=== PATIENT | female | born 1940 | race Caucasian/White ===

== ENCOUNTER 2016-08-26 01:30 | Emergency (ER) | payer MEDICARE, OTHER ==
[~2016-08-26 01:30] MED LIST: ASPIR 8181 MG PO; CARBAMAZEPINE200 MG PO; CORDARONE 200M200 MG PO; DULCOLAX10 MG PR; ELIQUIS5 MG PO; IMDUR ER TAB 3030 MG PO; K-DUR TAB 10 M10 MEQ PO; LANOXIN TAB 00.25 MG PO; LASIX40 MG PO; LEVETIRACETAM1000 MG PO; LIPITOR TAB 2020 MG PO; LISINOPRIL2.5 MG PO; LOPRESSOR 50 MG50 MG PO; MILK OF MAGNESI30 ML PO; PLAVIX 75 MG TA75 MG PO; PROMOD 946 ML BT1 EA PO; PROVENTIL HFA 61 INH INH; TEGRETOL 200 M200 MG PO; THERAGRAN M TAB1 EA PO; TYLENOL 500 MG500 MG PO; VITAMIN C 250250 MG PO
[2016-08-26 02:11] LABS: HEMOGLOBIN 11.4 gm/dl (12.3-15.3); RED BLOOD COUNT 4.11 M/UL (4.00-5.10); WHITE BLOOD COUNT 8.9 K/UL (4.5-11.0)
[2016-08-26 02:59] LABS: BUN/CREATININE RATIO 18 (0-10)
== END 2016-08-26 05:05 | disposition home or self-care (01) ==
LOC: ER1 01:30
PROVIDERS: Emergency Medicine
DX: N39.0 Urinary tract infection, site not specified (principal); F03.90 Unspecified dementia, unspecified severity, without behavioral disturbance, psychotic disturbance, mood disturbance, and anxiety
CPT/HCPCS: 36415; 80053; 80307; 81001; 82140; 85025; 87086; 96372; 99285; J0696

== ENCOUNTER 2020-10-10 12:02 | Emergency (ER) | payer MEDICARE, OTHER ==
[~2020-10-10 12:02] MED LIST changes: +BACITRACIN28.4 GM TP
[2020-10-10 12:41] LABS: RED BLOOD COUNT 4.49 M/UL (4.00-5.10); WHITE BLOOD COUNT 9.6 K/UL (4.5-11.0)
[2020-10-10 12:47] LABS: BUN/CREATININE RATIO 17 (0-10)
[2020-10-10] MEDS ORDERED: OMNICEF 300 MG300 MG PO (14:58)
== END 2020-10-10 18:00 | disposition home or self-care (01) ==
LOC: ER1 12:02
PROVIDERS: Physician Assistant
DX: N39.0 Urinary tract infection, site not specified (principal); I11.0 Hypertensive heart disease with heart failure; I50.9 Heart failure, unspecified; I48.91 Unspecified atrial fibrillation; E03.9 Hypothyroidism, unspecified; E66.9 Obesity, unspecified; Z86.73 Personal history of transient ischemic attack (TIA), and cerebral infarction without residual deficits
CPT/HCPCS: 70450; 71045; 80053; 81001; 82550; 82553; 83874; 83880; 84484; 85025; 85610; 87077; 87086; 87186; 93005; 96374; 99285; J0696

== ENCOUNTER → 2021-10-27 | Outpatient (CLI) | payer OTHER ==
[~2021-10-27] MED LIST changes: +CLEOCIN HCL300 MG PO; +DIGOXIN125 MCG PO; +FUROSEMIDE40 MG PO; +HYDROCODON-ACE1 EAC4 PO; +ISOSORBIDE MONO30 MG PO; +KEPPRA500 MG PO; +KLOR-CON M1010 MEQ PO; +LEVOFLOXACIN500 MG PO; +LEVOTHYROXINE75 MC1 PO; +OMNICEF 300 MG300 MG PO; +TOPROL XL50 MG PO; +TYLENOL325 MG PO; +WARFARIN SODIUM4 MG PO
== END ==
LOC: CATH 10-20 09:00
DX: Z45.02 Encounter for adjustment and management of automatic implantable cardiac defibrillator (principal); I25.5 Ischemic cardiomyopathy; I11.0 Hypertensive heart disease with heart failure; I50.22 Chronic systolic (congestive) heart failure; I25.10 Atherosclerotic heart disease of native coronary artery without angina pectoris; E78.00 Pure hypercholesterolemia, unspecified; I25.2 Old myocardial infarction; I48.19 Other persistent atrial fibrillation; G40.909 Epilepsy, unspecified, not intractable, without status epilepticus; E03.9 Hypothyroidism, unspecified; Z20.822 Contact with and (suspected) exposure to COVID-19; Z98.61 Coronary angioplasty status; Z98.890 Other specified postprocedural states; Z79.01 Long term (current) use of anticoagulants; Z79.82 Long term (current) use of aspirin
CPT/HCPCS: ECHO; 33240; 93306; 93641; 99152; 99153; C1721; J2250; J3010; J3370; J7040; J7050